=== PATIENT | female | born 1990 | race Caucasian/White ===

== ENCOUNTER 2018-02-25 02:02 | Emergency (ER) | payer SELFPAY ==
[~2018-02-25] VITALS: Ht 175.3 cm; Wt 68.0 kg
[~2018-02-25 02:02] MED LIST: ACHD5005 PO; CEFP250T2 PO; DOCU100C37 PO; FERR325T18 PO; FRS325T PO; IBP800T PO; IBUP-1773 PO; PRCD5U PO; PREN-115 PO; PREN1TAB44 PO; [UNRECOGNIZED DRUG - CODE] PO
--- OUTSIDE RECORDS SUMMARY | 2018-02-25 02:12 | XMS REPORT | Continuity of Care Document ---
Demographics Preferred Language Unknown Marital Status Unknown Mormon Affiliation Unknown Race Unknown Ethnic Group Unknown Author Author [facility] Address Unknown Phone Unavailable Allergies Active Description Code Type Severity Reaction Onset Reported/Identified Relationship to Patient Clinical Status Yes Penicillins Drug Allergy 09/02/2008 Yes Penicillins [id number] Drug Allergy Moderate hives 04/21/2015 Medications There is no data. Problems Date Dx Coded Attending Type Code Diagnosis Diagnosed By 09/02/2008 V25.9 Gynecologic Services Contraceptive Management 09/02/2008 V72.31 Pelvic Exam ( Internal) 09/09/2008 626.9 UNSPECIFIED DISORDERS OF MENSTRUATION AND OTHER ABNORMAL BLEEDING FROM FEMALE GENITAL TRACT 05/18/2012 V72.42 TEST POSITIVE RESULT 08/06/2012 Ot 648.73 08/06/2012 Ot 648.93 08/06/2012 Ot 724.5 08/06/2012 Ot 786.2 08/06/2012 Ot 789.00 08/31/2012 Ot 655.73 09/07/2012 Ot 644.03 10/08/2012 Ot 644.03 12/08/2012 ALVA GUERRIER DO Ot 285.1 12/08/2012 ALVA GUERRIER DO C Ot 644.21 12/08/2012 AURA GUERRIER DOA C Ot 648.22 12/08/2012 AURA GUERRIER DOA C Ot 649.01 12/08/2012 AURA GUERRIER DOA C Ot 653.41 12/08/2012 AURA GUERRIER DOA C Ot 659.71 12/08/2012 AURA GUERRIER DOA C Ot 660.11 12/08/2012 AURA GUERRIER DOA C Ot V27.0 11/20/2014 SHELBY ZAMORA DO Ot 599.0 11/20/2014 SHELBY ZAMORA DO Ot 646.63 04/23/2015 AURA GUERRIER DOA C Ot D62 04/23/2015 AURA GUERRIRE DOA C Ot F17.210 04/23/2015 AURA GUERRIER DOA C Ot O34.21 04/23/2015 AURA GUERRIER DOA C Ot O99.03 04/23/2015 ALVA GUERRIER DO Niki Ot O99.12 04/23/2015 ALVA GUERRIER DO Niki Ot O99.334 04/23/2015 ALVA GUERRIER DO Niki Ot Z23 04/23/2015 ALVA GUERRIER DO Niki Ot Z37.0 04/23/2015 ALVA GUERRIER DO Niki Ot Z3A.39 Procedures Code [place] [address] URINE TEST (IN- HOUSE) 05/18/2012 Results There is no data. Encounters ACCT No. Visit Date/Time Discharge Status Pt. Type Provider Facility Loc./Unit Complaint [id number] 05/18/2012 10:52:00 05/18/2012 23:59:59 CLS Outpatient [id number] 04/21/2015 07:30:00 04/23/2015 11:45:00 DIS Inpatient GUERRIER ALVA C Via [facility] LDRP [id number] 04/20/2015 05:52:00 04/20/2015 23:59:59 CLS Outpatient ALVA GUERRIER DO Via [facility] PREOP [id number] 11/20/2014 17:19:00 11/20/2014 20:43:00 DIS Emergency SHELBY ZAMORA DO Via [facility] ER [id number] 12/05/2012 07:14:00 12/08/2012 14:50:00 DIS Inpatient GUERRIERRony CEJA ALVA C [facility] [id number] 10/08/2012 22:59:00 Document Registration [id number] 09/07/2012 01:23:00 Document Registration [id number] 08/31/2012 00:43:00 Document Registration [id number] 08/06/2012 21:26:00 Document Registration
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
[2018-02-25] MEDS ORDERED: MAG30ORA2 PO (02:28)
[2018-02-25 02:33] LABS: BASOPHILS # (AUTO) 0.1 10^3/uL (0.0-0.1); BASOPHILS % (AUTO) 1 % (0-10); EOSINOPHILS # (AUTO) 0.1 10^3/uL (0.0-0.3); EOSINOPHILS % (AUTO) 1 % (0-10); HEMATOCRIT 29 % (35-52); HEMOGLOBIN 8.9 G/DL (11.5-16.0); LYMPHOCYTES # (AUTO) 2.9 X 10^3 (1.0-4.0); LYMPHOCYTES % (AUTO) 29 % (12-44); MEAN CORPUSCULAR HEMOGLOBIN 21 PG (25-34); MEAN CORPUSCULAR HGB CONC 31 G/DL (32-36); MEAN CORPUSCULAR VOLUME 67 FL (80-99); MONOCYTES # (AUTO) 0.6 X 10^3 (0.0-1.0); MONOCYTES % (AUTO) 6 % (0-12); NEUTROPHILS # (AUTO) 6.1 X 10^3 (1.8-7.8); NEUTROPHILS % (AUTO) 63 % (42-75); PLATELET COUNT 338 10^3/uL (130-400); RED BLOOD COUNT 4.31 10^6/uL (4.35-5.85); RED CELL DISTRIBUTION WIDTH 19.9 % (10.0-14.5); WHITE BLOOD COUNT 9.7 10^3/uL (4.3-11.0)
[2018-02-25 02:43] LABS: PROTHROMBIN TIME PATIENT 13.3 SEC (12.2-14.7)
[2018-02-25 02:44] LABS: BILIRUBIN,URINE NEGATIVE (NEGATIVE); CLARITY,URINE CLEAR; COLOR,URINE YELLOW; GLUCOSE, URINE (UA) NEGATIVE (NEGATIVE); KETONES,URINE NEGATIVE (NEGATIVE); LEUKOCYTE ESTERASE ,URINE 1+ (NEGATIVE); NITRITE,URINE NEGATIVE (NEGATIVE); PH,URINE 6.5 (5-9); PROTEIN,URINE 2+ (NEGATIVE); UROBILINOGEN,URINE NORMAL (NORMAL)
[2018-02-25 02:45] LABS: BACTERIA,URINE FEW /HPF; WBC,URINE RARE /HPF
[2018-02-25 02:47] LABS: AMPHETAMINE SCREEN, URINE NEGATIVE (NEGATIVE); BARBITURATE SCREEN URINE NEGATIVE (NEGATIVE); BENZODIAZEPINES SCREEN URINE NEGATIVE (NEGATIVE); CANNABINOID SCREEN, URINE NEGATIVE (NEGATIVE); COCAINE SCREEN URINE NEGATIVE (NEGATIVE); METHADONE STAT NEGATIVE (NEGATIVE); METHAMPHETAMINE SCREEN URINE S NEGATIVE (NEGATIVE); OPIATE SCREEN URINE NEGATIVE (NEGATIVE); OXYCODONE STAT NEGATIVE (NEGATIVE); PROPOXYPHENE STAT NEGATIVE (NEGATIVE); TRICYCLIC ANTIDEPRESSANTS SCRE NEGATIVE (NEGATIVE)
[2018-02-25 02:50] LABS: ALANINE AMINOTRANSFERASE 13 U/L (0-55); ALBUMIN 4.1 GM/DL (3.2-4.5); ALKALINE PHOSPHATASE 48 U/L (40-136); BILIRUBIN,TOTAL 0.2 MG/DL (0.1-1.0); BUN/CREATININE RATIO 20; CARBON DIOXIDE 19 MMOL/L (21-32); CHLORIDE 108 MMOL/L (98-107); CREATININE SERUM 0.76 MG/DL (0.60-1.30); GFR ESTIMATED > 60; GLUCOSE 91 MG/DL (70-105); MAGNESIUM 2.2 MG/DL (1.8-2.4); POTASSIUM 3.7 MMOL/L (3.6-5.0); SODIUM 137 MMOL/L (135-145); TOTAL PROTEIN 6.9 GM/DL (6.4-8.2)
[2018-02-25 03:10] LABS: TSH (THYROID ANALYZER) 3.56 UIU/ML (0.35-4.94)
[2018-02-25 03:15] VITALS: BP 105/61
== END 2018-02-25 03:15 | disposition home or self-care (01) ==
LOC: EDUNIT# 02:05 → ER 02:07
DX: J45.909 Unspecified asthma, uncomplicated (principal); F17.210 Nicotine dependence, cigarettes, uncomplicated; F41.9 Anxiety disorder, unspecified; Z98.51 Tubal ligation status; Z90.89 Acquired absence of other organs; Z87.440 Personal history of urinary (tract) infections; Z87.59 Personal history of other complications of pregnancy, childbirth and the puerperium; Z88.0 Allergy status to penicillin; Z88.1 Allergy status to other antibiotic agents
CPT/HCPCS: 36415; 80053; 80306; 80320; 81000; 83735; 83880; 84443; 84484; 84703; 85025; 85610; 85730; 93005; 93041

== ENCOUNTER 2018-08-22 20:31 | Emergency (ER) | payer SELFPAY ==
[~2018-08-22] VITALS: Ht 170.2 cm; Wt 66.7 kg
[~2018-08-22 20:31] MED LIST changes: +MAG30ORA2 PO
[2018-08-22] MEDS ORDERED: NS IV 1000 ML 1,000 ML IV SCH (20:50)
[2018-08-22] MEDS ORDERED: diphenhydrAMINE 50 MG/ML INJ (BENADRYL) IV STA (20:50)
[2018-08-22] MEDS ORDERED: KETOROLAC 30 MG/ML VIAL IVP STA (20:50)
[2018-08-22] MEDS ORDERED: PROCHLORPERAZINE 10 MG/2ML INJ (COMPAZINE) IV ONE (21:00)
--- OUTSIDE RECORDS SUMMARY | 2018-08-22 21:11 | XMS REPORT | Continuity of Care Document ---
Demographics Preferred Language Unknown Marital Status Unknown Pentecostalism Affiliation Unknown Race Unknown Ethnic Group Unknown Author Author [facility] Address Unknown Phone Unavailable Allergies Active Description Code Type Severity Reaction Onset Reported/Identified Relationship to Patient Clinical Status Yes Penicillins Drug Allergy 09/02/2008 Yes Penicillins [id number] Drug Allergy Moderate hives 04/21/2015 Medications There [...] 12/08/2012 ALVA GUERRIER DO Ot 285.1 12/08/2012 AURA GUERRIER DOA C Ot 644.21 12/08/2012 AURA GUERRIER DOA [...] GUERRIER DOA C Ot D62 04/23/2015 AURA GUERRIER DOA C Ot F17.210 04/23/2015 AURA GUERRIER DOA C Ot O34.21 04/23/2015 AURA GUERRIER DOA C Ot O99.03 04/23/2015 ALVA GUERRIER DO Ot O99.12 04/23/2015 GUERRIER DO, ALVA Prince Ot O99.334 04/23/2015 ALVA GUERRIER DO Ot Z23 04/23/2015 GUERRIER DO, ALVA Prince Ot Z37.0 04/23/2015 ALVA GUERRIER DO Ot Z3A.39 02/25/2018 Ot F17.210 NICOTINE DEPENDENCE, CIGARETTES, UNCOMPL 02/25/2018 Ot F41.0 PANIC DISORDER [EPISODIC PAROXYSMAL ANXI 02/25/2018 Ot F41.9 ANXIETY DISORDER, UNSPECIFIED 02/25/2018 Ot J45.909 UNSPECIFIED ASTHMA, UNCOMPLICATED 02/25/2018 Ot Z87.440 PERSONAL HISTORY OF URINARY (TRACT) INFE 02/25/2018 Ot Z87.59 PERSONAL HISTORY OF COMP OF PREG, CHLDBR 02/25/2018 Ot Z88.0 ALLERGY STATUS TO PENICILLIN 02/25/2018 Ot Z88.1 ALLERGY STATUS TO OTHER ANTIBIOTIC AGENT 02/25/2018 Ot Z90.89 ACQUIRED ABSENCE OF OTHER ORGANS 02/25/2018 Ot Z98.51 TUBAL LIGATION STATUS Procedures Code Description [place] [address] URINE TEST (IN- HOUSE) 05/18/2012 Results Test Result Range Complete blood count (CBC) with automated white blood cell (WBC) differential - 02/25/18 02:20 Blood leukocytes automated count (number/volume) 9.7 10*3/uL 4.3-11.0 Blood erythrocytes automated count (number/volume) 4.31 10*6/uL 4.35-5.85 Venous blood hemoglobin measurement (mass/volume) 8.9 g/dL 11.5-16.0 Blood hematocrit (volume fraction) 29 % 35-52 Automated erythrocyte mean corpuscular volume 67 [foz_us] 80-99 Automated erythrocyte mean corpuscular hemoglobin (mass per erythrocyte) 21 pg 25-34 Automated erythrocyte mean corpuscular hemoglobin concentration measurement ( mass/volume) 31 g/dL 32-36 Automated erythrocyte distribution width ratio 19.9 % 10.0-14.5 Automated blood platelet count (count/volume) 338 10*3/uL 130-400 Automated blood platelet mean volume measurement 11.0 [foz_us] 7.4-10.4 Automated blood neutrophils/100 leukocytes 63 % 42-75 Automated blood lymphocytes/100 leukocytes 29 % 12-44 Blood monocytes/100 leukocytes 6 % 0-12 Automated blood eosinophils/100 leukocytes 1 % 0-10 Automated blood basophils/100 leukocytes 1 % 0-10 Blood neutrophils automated count (number/volume) 6.1 10*3 1.8-7.8 Blood lymphocytes automated count (number/volume) 2.9 10*3 1.0-4.0 Blood monocytes automated count (number/volume) 0.6 10*3 0.0-1.0 Automated eosinophil count 0.1 10*3/uL 0.0-0.3 Automated blood basophil count (count/volume) 0.1 10*3/uL 0.0-0.1 PT panel in platelet poor plasma by coagulation assay - 02/25/18 02:20 Prothrombin time (PT) in platelet poor plasma by coagulation assay 13.3 s 12.2-14.7 INR in platelet poor plasma or blood by coagulation assay 1.0 0.8-1.4 Activated partial thromboplastin time (aPTT) in platelet poor plasma bycoagulation assay - 02/25/18 02:20 Activated partial thromboplastin time (aPTT) in platelet poor plasma bycoagulation assay 31 s 24-35 Comprehensive metabolic panel - 02/25/18 02:20 Serum or plasma sodium measurement (moles/volume) 137 mmol/L 135-145 Serum or plasma potassium measurement (moles/volume) 3.7 mmol/L 3.6-5.0 Serum or plasma chloride measurement (moles/volume) 108 mmol/L 98-107 Carbon dioxide 19 mmol/L 21-32 Serum or plasma anion gap determination (moles/volume) 10 mmol/L 5-14 Serum or plasma urea nitrogen measurement (mass/volume) 15 mg/dL 7-18 Serum or plasma creatinine measurement (mass/volume) 0.76 mg/dL 0.60-1.30 Serum or plasma urea nitrogen/creatinine mass ratio 20 NRG Serum or plasma creatinine measurement with calculation of estimated glomerular filtration rate > NRG Serum or plasma glucose measurement (mass/volume) 91 mg/dL 70-105 Serum or plasma calcium measurement (mass/volume) 9.0 mg/dL 8.5-10.1 Serum or plasma total bilirubin measurement (mass/volume) 0.2 mg/dL 0.1-1.0 Serum or plasma alkaline phosphatase measurement (enzymatic activity/volume) 48 U/L 40-136 Serum or plasma aspartate aminotransferase measurement (enzymatic activity/ volume) 14 U/L 5-34 Serum or plasma alanine aminotransferase measurement (enzymatic activity/volume ) 13 U/L 0-55 Serum or plasma protein measurement (mass/volume) 6.9 g/dL 6.4-8.2 Serum or plasma albumin measurement (mass/volume) 4.1 g/dL 3.2-4.5 Magnesium - 02/25/18 02:20 Magnesium 2.2 mg/dL 1.8-2.4 Serum or plasma lithium measurement (moles/volume) - 02/25/18 02:20 BNP level < pg/mL <100.0 Serum or plasma troponin i.cardiac measurement (mass/volume) - 02/25/18 02:20 Serum or plasma troponin i.cardiac measurement (mass/volume) < ng/ mL <0.30 Serum or plasma thyrotropin measurement by detection limit <=0.05 miu/l (units/ volume) - 02/25/18 02:20 Serum or plasma thyrotropin measurement by detection limit <=0.05 miu/l (units/ volume) 3.56 u[iU]/mL 0.35-4.94 Serum or plasma ethanol measurement (mass/volume) - 02/25/18 02:20 Serum or plasma ethanol measurement (mass/volume) < mg/dL <10 Complete urinalysis with reflex to culture - 02/25/18 02:23 Urine color determination YELLOW NRG Urine clarity determination CLEAR NRG Urine pH measurement by test strip 6.5 5-9 Specific gravity of urine by test strip 1.015 1.016- 1.022 Urine protein assay by test strip, semi-quantitative 2+ NEGATIVE Urine glucose detection by automated test strip NEGATIVE NEGATIVE Erythrocytes detection in urine sediment by light microscopy NEGATIVE NEGATIVE Urine ketones detection by automated test strip NEGATIVE NEGATIVE Urine nitrite detection by test strip NEGATIVE NEGATIVE Urine total bilirubin detection by test strip NEGATIVE NEGATIVE Urine urobilinogen measurement by automated test strip (mass/volume) NORMAL NORMAL Urine leukocyte esterase detection by dipstick 1+ NEGATIVE Automated urine sediment erythrocyte count by microscopy (number/high power field) NONE NRG Automated urine sediment leukocyte count by microscopy (number/high power field ) RARE NRG Bacteria detection in urine sediment by light microscopy FEW NRG Squamous epithelial cells detection in urine sediment by light microscopy 5-10 NRG Crystals detection in urine sediment by light microscopy NONE NRG Casts detection in urine sediment by light microscopy NONE NRG Mucus detection in urine sediment by light microscopy NEGATIVE NRG Complete urinalysis with reflex to culture NO NRG Urine drug screening test - 02/25/18 02:23 Urine phencyclidine detection by screening method NEGATIVE NEGATIVE Urine benzodiazepines detection by screening method NEGATIVE NEGATIVE Urine cocaine detection NEGATIVE NEGATIVE Urine amphetamines detection by screening method NEGATIVE NEGATIVE Urine methamphetamine detection by screening method NEGATIVE NEGATIVE Urine cannabinoids detection by screening method NEGATIVE NEGATIVE Urine opiates detection by screening method NEGATIVE NEGATIVE Urine barbiturates detection NEGATIVE NEGATIVE Screening urine tricyclic antidepressants detection NEGATIVE NEGATIVE Urine methadone detection by screening method NEGATIVE NEGATIVE Urine oxycodone detection NEGATIVE NEGATIVE Urine propoxyphene detection NEGATIVE NEGATIVE Encounters ACCT No. Visit Date/Time Discharge Status Pt. Type Provider Facility Loc./Unit Complaint [id number] 05/18/2012 10:52:00 05/18/2012 23:59:59 CLS Outpatient [id number] 04/21/2015 07:30:00 04/23/2015 11:45:00 DIS Inpatient ALVA GUERRIER DO [facility] LDRP [id number] 04/20/2015 05:52:00 04/20/2015 23:59:59 CLS Outpatient ALVA GUERRIER DO [facility] PREOP [id number] 11/20/2014 17:19:00 11/20/2014 20:43:00 DIS Emergency SHELBY ZAMORA DO [facility] ER [id number] 12/05/2012 07:14:00 12/08/2012 14:50:00 DIS Inpatient ALVA GUERRIER DO [facility] [id number] 02/25/2018 02:37:00 Document Registration [id number] 10/08/2012 22:59:00 Document Registration [id number] 09/07/2012 01:23:00 Document Registration [id number] 08/31/2012 00:43:00 Document Registration [id number] 08/06/2012 21:26:00 Document Registration
--- NOTE | 2018-08-22 21:12 | ED Headache ---
General Chief Complaint: Head/Cervical Problems Stated Complaint: HEADACHE Nursing Triage Note: PT AMB TO ROOM #8 W/O DIFFICULTY. A&OX4. C/O LT SIDED HEADACHE FOR APPROX X3 WKS. REPORTS PAIN IS BECOMING SO SEVERE SHE IS NOW EXPERIENCING NAUSEA AND VOMITING. REPORTS SHE HAS X3 EPISODES OF EMESIS THROUGHOUT THIS DAY. REPORTS PHOTOPHONIA. 3MM PERRLA. S/O @ SIDE. Nursing Sepsis Screen: No Definite Risk History of Present Illness Date Seen by Provider: Aug 22, 2018 Time Seen by Provider: 20:50 Initial Comments 28-year-old female presents for headache. She states that it has been intermittent over the last 3 weeks but has gotten progressively worse in the last 24 hours. Vomited approximately 3 times today, once since admission to ED. She has tried Tylenol and ibuprofen with no improvement in her symptoms. She denies history of headaches or migraines. She does report mild photophobia, no seizure activity or changes in vision. Timing/Duration: increasing, waxing and waning Severity/Quality: moderate Location: temporal (left) Prior Headaches/Recent Trauma: no recent headache/trauma Modifying Factors: improves with rest Associated Symptoms: No confusion, No fatigue, No facial pain, No fever/chills ; nausea/vomiting; No nasal congestion, No nasal drainage, No sinus infection, No stiff neck, No vision changes, No weakness Allergies and Home Medications Allergies Coded Allergies: Penicillins (Verified Allergy, Intermediate, hives, 04/21/15) Cephalosporins PER FERNANDO PATIENT HAS RECEIVED ANCEF WITHOUT ISSUE Home Medications Mag Hydrox/Al Hydrox/Simeth 30 Ml Oral.susp, 30 ML PO QID PRN for INDIGESTION, ( Reported) Patient Home Medication List Home Medication List Reviewed: Yes Review of Systems Review of Systems Constitutional: no symptoms reported, see HPI : No (tubal ligation) Psychiatric/Neurological: See HPI, Headache Past Wjjvzfg-Wsrjyf-Ptjwxo Hx Past Med/Social Hx: Reviewed Nursing Past Med/Soc Hx Patient Social History Alcohol Use: Denies Use Recreational Drug Use: No Smoking Status: Current Everyday Smoker Type Used: Cigarettes 2nd Hand Smoke Exposure: Yes Recent Foreign Travel: No Contact w/Someone Who Travel: No Recent Infectious Disease Expo: No Recent Hopitalizations: No Immunizations Up To Date Tetanus Booster (TDap): Less than 5yrs Seasonal Allergies Seasonal Allergies: No Past Medical History Surgeries: Yes ( X 3) Appendectomy, Section, Gallbladder, Tubal Ligation Respiratory: Yes Asthma Cardiac: No Neurological: No Reproductive Disorders: No Female Reproductive Disorders: Denies MRI CT TECH History: Tubal Ligation HIV/AIDS: No Genitourinary: No UTI-Chronic Gastrointestinal: No Musculoskeletal: No Endocrine: No HEENT: No Cancer: No Psychosocial: Yes Anxiety Integumentary: No Blood Disorders: No Family Medical History Patient reports no known family medical history. Physical Exam Vital Signs Vital Signs - First Documented 08/22/18 20:38 Temp 96.9 Pulse 87 Resp 18 B/P (MAP) 121/70 (87) Pulse Ox 100 O2 Delivery Room Air Capillary Refill : Less Than 3 Seconds Height, Weight, BMI Height: 5'7.00" Weight: 147lbs. oz. 66.685453aj; BMI Method:Stated General Appearance: WD/WN, no apparent distress HEENT: PERRL/EOMI, normal ENT inspection, TMs normal, pharynx normal Neck: non-tender, full range of motion, supple, normal inspection Cardiovascular: normal peripheral pulses, regular rate, rhythm, no murmur Respiratory: chest non-tender, lungs clear, normal breath sounds Gastrointestinal: normal bowel sounds, non tender, soft Extremities: normal range of motion, non-tender, normal inspection, normal capillary refill Psychiatric: alert, oriented x 3 Crainal Nerves: normal hearing, normal speech Motor/Sensory: no motor deficit, no sensory deficit Skin: normal color, warm/dry Progress/Results/Core Measures Results/Orders My Orders Orders - FLORENTIN CHANEY Diphenhydramine Injection (Benadryl Inje (08/22/18 20:50) Ketorolac Injection (Toradol Injection) (08/22/18 20:50) Prochlorperazine Injection (Compazine In (08/22/18 21:00) Saline Lock/Iv-Start (08/22/18 20:50) Ns Iv 1000 Ml (Sodium Chloride 0.9%) (08/22/18 20:50) Rx-Ondansetron Po (Rx-Zofran Po) (08/22/18 21:56) Medications Given in ED Current Medications Medications Dose Ordered Sig/Ezio Route Start Time Stop Time Status Last Admin Dose Admin Prochlorperazine Edisylate 10 mg ONCE ONCE IV 08/22/18 21:00 08/22/18 21:01 DC 08/22/18 21:24 10 MG Vital Signs/I&O 08/22/18 20:38 Temp 96.9 Pulse 87 Resp 18 B/P (MAP) 121/70 (87) Pulse Ox 100 O2 Delivery Room Air Blood Pressure Mean: 87 Progress Progress Note : Time: 20:55 Progress Note Patient seen and evaluated, will start a normal saline 1 L IV, Compazine 10 mg IV, Benadryl 50 mg IV and Toradol 30 mg IV, then reevaluate. 2139 Patient reports improvement in her headache, no further n/v. Approximately 1/2 of IV fluids infused, will d/c when completed. 2199 Discharge planning and return precautions reviewed with her, all questions answered. Departure Impression Primary Impression: Headache Qualified Codes: G44.211 - Episodic tension-type headache, intractable Disposition: HOME, SELF-CARE Condition: Improved Departure-Patient Inst. Decision time for Depature: 21:45 Referrals: CANDELARIO LVOELACE MD (PCP/Family) Primary Care Physician Patient Instructions: Headache, Adult (DC) Add. Discharge Instructions: Increase water intake, extending ounces every 2 hours while awake. Obtain moxm-rfq-gymvmuf Excedrin Migraine intake at onset of headache. If headaches continue, follow-up with Dr. Lovelace. You may take Zofran every 6 hours as needed for nausea and vomiting. Return to emergency Department if headache worsens, is associated with seizure activity or vision changes, fever greater than 101 not relieved by Tylenol or ibuprofen, or new concerns. All discharge instructions reviewed with patient and/or family. Voiced understanding. FLORENTIN CHANEY Aug 22, 2018 21:12
[2018-08-22] MEDS ORDERED: RX-ONDANSETRON 4 MG ODT (ZOFRAN) PPK #4 PO STA (21:56)
[2018-08-22 22:18] VITALS: BP 120/70
== END 2018-08-22 22:18 | disposition home or self-care (01) ==
LOC: EDUNIT# 20:31 → ER 20:32
DX: R51 Headache (principal); J45.909 Unspecified asthma, uncomplicated; F41.9 Anxiety disorder, unspecified; F17.210 Nicotine dependence, cigarettes, uncomplicated; Z90.49 Acquired absence of other specified parts of digestive tract; Z98.890 Other specified postprocedural states; Z87.440 Personal history of urinary (tract) infections; Z98.51 Tubal ligation status; Z88.0 Allergy status to penicillin; Z88.1 Allergy status to other antibiotic agents

== ENCOUNTER 2018-11-12 09:45 | Emergency (ER) | payer SELFPAY ==
[~2018-11-12] VITALS: Ht 175.3 cm; Wt 68.0 kg
--- NOTE | 2018-11-12 10:22 | ED Lower Extremity ---
General Chief Complaint: Lower Extremity Stated Complaint: FELL AND HURT RT ANKLE Nursing Triage Note: PT AMB TO RM 8 WITH COMPLAINT OF RIHGT ANKLE PAIN. PT STATES SHE TRIPPED AND FELL OVER SOMEONES PURSE LAST NIGHT AT WORK. STATES SHE HEARD A "POP" AND HER TOES WENT NUMB FOR A MOMENT. PT STATES NUMBNESS RESOLVED, BUT IS HAVING PAIN. Nursing Sepsis Screen: No Definite Risk Source: patient, family History of Present Illness Date Seen by Provider: Nov 12, 2018 Time Seen by Provider: 10:20 Initial Comments This 28-year-old white female presents after sustaining an inversion injury to her previously on injured right ankle last night. She complained of pain and swelling over the lateral malleolar area. She denies pain in the calcaneus, fifth metatarsal, right knee or hip. Patient has been able weight-bear but with marked discomfort. Allergies and Home Medications Allergies Coded Allergies: Penicillins (Verified Allergy, Intermediate, hives, 04/21/15) Cephalosporins PER FERNANDO PATIENT HAS RECEIVED ANCEF WITHOUT ISSUE Home Medications Mag Hydrox/Al Hydrox/Simeth 30 Ml Oral.susp, 30 ML PO QID PRN for INDIGESTION, ( Reported) Patient Home Medication List Home Medication List Reviewed: Yes Review of Systems Constitutional: No chills EENTM: No ear pain Respiratory: No cough Cardiovascular: No chest pain Gastrointestinal: No abdominal pain Genitourinary: No dysuria, No frequency Musculoskeletal: No back pain; joint pain Skin: No change in color (right ankle), No rash Psychiatric/Neurological: No Symptoms Reported Past Euyrnzb-Lqorav-Etenvz Hx Past Med/Social Hx: Reviewed Nursing Past Med/Soc Hx Patient Social History Alcohol Use: Denies Use Recreational Drug Use: No Smoking Status: Current Everyday Smoker Type Used: Cigarettes 2nd Hand Smoke Exposure: Yes Recent Foreign Travel: No Contact w/Someone Who Travel: No Recent Infectious Disease Expo: No Recent Hopitalizations: No Immunizations Up To Date Tetanus Booster (TDap): Less than 5yrs PED Vaccines UTD: Yes Seasonal Allergies Seasonal Allergies: No Past Medical History Surgeries: Yes ( X 3) Appendectomy, Section, Gallbladder, Tubal Ligation Respiratory: Yes Asthma Cardiac: No Neurological: No Reproductive Disorders: No 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 Physical Exam Vital Signs Vital Signs - First Documented 11/12/18 09:57 Pulse 102 Resp 20 B/P (MAP) 121/58 (79) Pulse Ox 100 O2 Delivery Room Air Capillary Refill : Less Than 3 Seconds Height, Weight, BMI Height: 5'9.00" Weight: 150lbs. oz. 68.348233nx; BMI Method:Stated General Appearance: WD/WN, mild distress HEENT: normal ENT inspection Neck: normal inspection Cardiovascular: regular rate, rhythm Respiratory: lungs clear Gastrointestinal: normal bowel sounds Ankles: right ankle pain, right ankle swelling Neurologic/Tendon: normal sensation, normal motor functions, normal tendon functions Neurologic/Psychiatric: no motor/sensory deficits, alert, normal mood/affect Skin: normal color, warm/dry Progress/Results/Core Measures Results/Orders My Orders Orders - LADY PADRON MD Ankle, Right, 3 Views (11/12/18 11:36) Hydrocodone/Apap 5/325 Tablet (Lortab 5 (11/12/18 11:45) Medications Given in ED Current Medications Medications Dose Ordered Sig/Ezio Route Start Time Stop Time Status Last Admin Dose Admin Acetaminophen/ Hydrocodone Bitart 2 tab ONCE ONCE PO 11/12/18 11:45 11/12/18 11:46 DC 11/12/18 11:40 2 TAB Vital Signs/I&O 11/12/18 09:57 Pulse 102 Resp 20 B/P (MAP) 121/58 (79) Pulse Ox 100 O2 Delivery Room Air Blood Pressure Mean: 79 Progress Progress Note : Time: 12:24 Progress Note X-ray of the right ankle film demonstrated evidence of fracture dislocation. Patient was given 2 Vicodin 5 mg orally. Patient was given an air cast. She was offered crutches. She was asked about the doctor this week. Departure Impression Primary Impression: Ankle sprain Qualified Codes: S93.431A - Sprain of tibiofibular ligament of right ankle, initial encounter Disposition: HOME, SELF-CARE Condition: Improved Departure-Patient Inst. Decision time for Depature: 12:25 Referrals: CANDELARIO LOVELACE MD (PCP/Family) Primary Care Physician Patient Instructions: Ankle Sprain, Dependent Edema (DC) Add. Discharge Instructions: Vicodin for pain. Iain wrap and crutches for limited weightbearing. Follow-up with your All discharge instructions reviewed with patient and/or family. Voiced understanding. LADY PADRON MD Nov 12, 2018 10:22
[2018-11-12] MEDS ORDERED: HYDROcodone/APAP 5 MG/325 MG (LORTAB) TAB PO ONE (11:45)
--- NOTE | 2018-11-12 12:19 | Diagnostic Imaging Report ---
INDICATION: Right ankle pain, tripped and fell last night at work. [place] pop, numbness. TECHNIQUE: Three views of the right ankle CORRELATION STUDY: None FINDINGS: The bony alignment is anatomic. The talar dome is intact. The ankle mortise is maintained. There is no acute fracture or dislocation. Soft tissue swelling is present. IMPRESSION: Negative for acute bony abnormality of the ankle. Soft tissue swelling. Dictated by: Dictated on workstation # [id number]
[2018-11-12 12:32] VITALS: BP 116/62
== END 2018-11-12 12:31 | disposition home or self-care (01) ==
LOC: EDUNIT# 09:45 → ER 09:46
DX: S93.431A Sprain of tibiofibular ligament of right ankle, initial encounter (principal); J45.909 Unspecified asthma, uncomplicated; F41.9 Anxiety disorder, unspecified; F17.210 Nicotine dependence, cigarettes, uncomplicated; Z90.49 Acquired absence of other specified parts of digestive tract; Z87.440 Personal history of urinary (tract) infections; Z98.890 Other specified postprocedural states; Z98.51 Tubal ligation status; Z88.0 Allergy status to penicillin; Z88.1 Allergy status to other antibiotic agents; W01.0XXA Fall on same level from slipping, tripping and stumbling without subsequent striking against object, initial encounter; X50.1XXA Overexertion from prolonged static or awkward postures, initial encounter; Y92.59 Other trade areas as the place of occurrence of the external cause; Y99.0 Civilian activity done for income or pay
CPT/HCPCS: 73610

== ENCOUNTER 2022-03-04 17:10 | Day surgery (SDC) | payer SELFPAY ==
[~2022-03-04] VITALS: Ht 175.3 cm; Wt 88.7 kg
[2022-03-04] VITALS (7 sets, daily range): BP systolic 133–146; BP diastolic 64–81
[2022-03-04 17:25] LABS: BILIRUBIN,URINE NEGATIVE (NEGATIVE); CLARITY,URINE CLEAR; COLOR,URINE YELLOW; GLUCOSE, URINE (UA) NEGATIVE (NEGATIVE); KETONES,URINE NEGATIVE (NEGATIVE); LEUKOCYTE ESTERASE ,URINE NEGATIVE (NEGATIVE); NITRITE,URINE NEGATIVE (NEGATIVE); PROTEIN,URINE NEGATIVE (NEGATIVE)
[2022-03-04] MEDS ORDERED: fentaNYL INJ 100 MCG/2 ML AMP IVP STA ×2 (17:27→20:08)
[2022-03-04] MEDS ORDERED: NS 100 ML (IVPB) BAG IV ONE (17:30)
[2022-03-04] MEDS ORDERED: HOLD METFORMIN - RECEIVED CONTRAST 20 ML VIAL IV SCH (17:30)
[2022-03-04] MEDS ORDERED: IOHEXOL 350 MG/ML 100 ML (OMNIPAQUE 350) VIAL IV ONE (17:30)
--- NOTE | 2022-03-04 17:33 | ED Abdominal Pain ---
General Chief Complaint: Abdominal/GI Problems Stated Complaint: RLQ PAIN Source of Information: Patient Exam Limitations: No Limitations (KEIKO MCGHEE) History of Present Illness Date Seen by Provider: Mar 04, 2022 Time Seen by Provider: 17:29 Initial Comments Patient is a 31-year-old female in moderate distress who presents to ED with right lower quad abdominal pain. Pain started 3 days ago. Pain is described as sharp. Started 3 days ago as intermittent. Increasing pain yesterday and worse today rates 10 out of 10. Pain does not radiate. Patient is crying on arrival. She has no urinary symptoms, vaginal discharge or vaginal bleeding. She reports nausea today with dry heaving. Denies of any diarrhea. History of tubal ligation. Not concern for . She does have a history of cholecystectomy and appendectomy. She went to [facility] was sent over the ED for further evaluation. Had a negative urinalysis. No history of kidney stones. Has been taken Motrin and Tylenol without much improvement. (KEIKO MCGHEE) Allergies and Home Medications Allergies Coded Allergies: Penicillins (Verified Allergy, Intermediate, hives, 04/21/15) Cephalosporins PER JJAMES PATIENT HAS RECEIVED ANCEF WITHOUT ISSUE Patient Home Medication List Home Medication List Reviewed: Yes (KEIKO MCGHEE) Docusate Sodium (Colace) 100 Mg Capsule, 100 MG PO BID Prescribed by: INGA CARMEN on 03/04/222117 Ibuprofen (Ibuprofen) 800 Mg Tablet, 800 MG PO Q4H PRN for PAIN Prescribed by: INGA CARMEN on 03/04/222117 Mag Hydrox/Al Hydrox/Simeth (Mylanta Suspension) 30 Ml Oral.susp, 30 ML PO QID PRN for INDIGESTION, (Reported) Entered as Reported by: JOANNE TAMAYO on 02/25/18 0228 Review of Systems Review of Systems Constitutional: No chills, No diaphoresis, No malaise, No weakness EENTM: No Double Vision, No Eye Pain, No Mouth Pain, No Mouth Swelling Respiratory: Denies Cough, Denies Shortness of Air, Denies Wheezing Cardiovascular: Denies Chest Pain Gastrointestinal: Abdominal Pain; Denies Diarrhea, Denies Nausea, Denies Vomiting Genitourinary: Denies Burning, Denies Discharge, Denies Drainage, Denies Frequency Musculoskeletal: No back pain, No joint pain Skin: No change in color, No change in hair/nails Psychiatric/Neurological: Denies Anxiety, Denies Depressed (KEIKO MCGHEE) All Other Systems Reviewed Negative Unless Noted: Yes (KEIKO MCGHEE) Past Lbetsuo-Ogkeyv-Gluuzr Hx Patient Social History Tobacco Use?: Yes Tobacco type used: Cigarettes Smoking Status: Current Everyday Smoker Use of E-Cig and/or Vaping dev: No Substance use?: No Alcohol Use?: No Pt feels they are or have been: No (KEIKO MCGHEE) Immunizations Up To Date Tetanus Booster (TDap): Less than 5yrs PED Vaccines UTD: Yes (KEIKO MCGHEE) Seasonal Allergies Seasonal Allergies: No (KEIKO MCGHEE) Past Medical History Surgeries: Yes ( X 3) Appendectomy, Section, Gallbladder, Tubal Ligation Respiratory: Yes Asthma Cardiac: No Neurological: No Reproductive Disorders: No 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 Physical Exam Vital Signs Vital Signs - First Documented 03/04/22 17:16 Temp 36.7 Pulse 90 Resp 18 B/P (MAP) 118/70 (86) Pulse Ox 100 O2 Delivery Room Air (ROSE LOPEZ MD) Vital Signs Capillary Refill : (KEIKO MCGHEE) Height/Weight/BMI Height: 5'9.00" Weight: 150lbs. oz. 68.106530fg; BMI Method:Stated General Appearance: WD/WN, no apparent distress HEENT: PERRL/EOMI, normal ENT inspection, TMs normal, pharynx normal Neck: non-tender, full range of motion, supple Respiratory: chest non-tender, lungs clear, normal breath sounds, no respiratory distress, no accessory muscle use Cardiovascular: regular rate, rhythm, no edema, no gallop, no JVD Gastrointestinal: normal bowel sounds, soft, no organomegaly, tenderness (rlq abd tenderness on palpation. 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, no motor/sensory deficits, alert, normal mood/affect, oriented x 3 Skin: normal color, warm/dry (KEIKO MCGHEE) Progress/Results/Core Measures Results/Orders Lab Results Laboratory Tests Test 03/04/22 17:19 03/04/22 17:24 Range/Units Urine Color YELLOW Urine Clarity CLEAR Urine pH 6.0 5-9 Urine Specific [place] 1.015 L 1.016-1.022 Urine Protein NEGATIVE NEGATIVE Urine Glucose (UA) NEGATIVE NEGATIVE Urine Ketones NEGATIVE NEGATIVE Urine Nitrite NEGATIVE NEGATIVE Urine Bilirubin NEGATIVE NEGATIVE Urine Urobilinogen 0.2 < = 1.0 MG/DL Urine Leukocyte Esterase NEGATIVE NEGATIVE Urine RBC (Auto) NEGATIVE NEGATIVE Urine RBC NONE /HPF Urine WBC NONE /HPF Urine Squamous Epithelial Cells 25-50 H /HPF Urine Crystals NONE /LPF Urine Bacteria TRACE /HPF Urine Casts NONE /LPF Urine Mucus NEGATIVE /LPF Urine Culture Indicated NO Urine Test NEGATIVE NEGATIVE White Blood Count 9.4 4.3-11.0 10^3/uL Red Blood Count 4.93 3.80-5.11 10^6/uL Hemoglobin 9.7 L 11.5-16.0 g/dL Hematocrit 34 L 35-52 % Mean Corpuscular Volume 68 L 80-99 fL Mean Corpuscular Hemoglobin 20 L 25-34 pg Mean Corpuscular Hemoglobin Concent 29 L 32-36 g/dL Red Cell Distribution Width 20.4 H 10.0-14.5 % Platelet Count 211 130-400 10^3/uL Mean Platelet Volume 11.0 9.0-12.2 fL Immature Granulocyte % (Auto) 0 % Neutrophils (%) (Auto) 70 42-75 % Lymphocytes (%) (Auto) 22 12-44 % Monocytes (%) (Auto) 6 0-12 % Eosinophils (%) (Auto) 2 0-10 % Basophils (%) (Auto) 0 0-10 % Neutrophils # (Auto) 6.5 1.8-7.8 10^3/uL Lymphocytes # (Auto) 2.0 1.0-4.0 10^3/uL Monocytes # (Auto) 0.6 0.0-1.0 10^3/uL Eosinophils # (Auto) 0.1 0.0-0.3 10^3/uL Basophils # (Auto) 0.0 0.0-0.1 10^3/uL Immature Granulocyte # (Auto) 0.0 0.0-0.1 10^3/uL Percent Immature Platelet Fraction 8.3 H 0.0-7.6 % Sodium Level 138 135-145 MMOL/L Potassium Level 4.0 3.6-5.0 MMOL/L Chloride Level 106 98-107 MMOL/L Carbon Dioxide Level 22 21-32 MMOL/L Anion Gap 10 5-14 MMOL/L Blood Urea Nitrogen 9 7-18 MG/DL Creatinine 0.75 0.60-1.30 MG/DL Estimat Glomerular Filtration Rate 110 BUN/Creatinine Ratio 12 Glucose Level 79 70-105 MG/DL Calcium Level 9.3 8.5-10.1 MG/DL Corrected Calcium 9.0 8.5-10.1 MG/DL Total Bilirubin 0.2 0.1-1.0 MG/DL Aspartate Amino Transf (AST/SGOT) 18 5-34 U/L Alanine Aminotransferase (ALT/SGPT) 20 0-55 U/L Alkaline Phosphatase 61 40-136 U/L Total Protein 7.5 6.4-8.2 GM/DL Albumin 4.4 3.2-4.5 GM/DL Lipase 28 8-78 U/L Smear Scan YES (ROSE LOPEZ MD) Vital Signs/I&O 03/04/22 03/04/22 03/04/22 17:16 18:15 20:30 Temp 36.7 Pulse 90 77 70 Resp 18 16 B/P (MAP) 118/70 (86) 149/64 149/87 Pulse Ox 100 100 100 O2 Delivery Room Air Room Air Room Air (ROSE LOPEZ MD) Departure Communication (Admissions) Time/Spoke to Admitting Phy: 20:34 Patient with a right ovarian torsion. Patient was discussed with Dr. PITT who will take the patient to the OR and admit for observation. (KEIKO MCGHEE) Communication (PCP) Patient with a right ovarian torsion. Patient Was given IV fentanyl with some improvement of pain. Normal white blood count. Urinalysis was negative for infection or . Patient was discussed with Dr. PITT who recommends patient to go to the OR and admit for observation. Patient with anemia 9.7 likely chronic (KEIKO MCGHEE) Impression Primary Impression: Ovarian torsion Disposition: ADMITTED INPATIENT Condition: Stable Admissions Decision to Admit Reason: Admit from ER (General) Decision to Admit/Date: Mar 04, 2022 Time/Decision to Admit Time: 20:34 (KEIKO MCGHEE) Departure-Patient Inst. Referrals: NO,LOCAL PHYSICIAN (PCP/Family) Primary Care Physician Scripts Ibuprofen (Ibuprofen) 800 Mg Tablet 800 MG PO Q4H PRN for PAIN, #60 TAB Prov: INGA PITT MD 03/04/22 Docusate Sodium (Colace) 100 Mg Capsule 100 MG PO BID, #60 CAP Prov: INGA PITT MD 03/04/22 ATTENDING PHYSICIAN NOTE: I was physically present as attending physician in the emergency department during the care of this patient, but I was not directly involved in the decision making or delivery of care for this patient. (ROSE LOPEZ MD) KEIKO MCGHEE Mar 04, 2022 17:33 ROSE LOPEZ MD Mar 07, 2022 00:03
[2022-03-04 17:37] LABS: BASOPHILS % (AUTO) 0 % (0-10); EOSINOPHILS # (AUTO) 0.1 10^3/uL (0.0-0.3); EOSINOPHILS % (AUTO) 2 % (0-10); HEMATOCRIT 34 % (35-52); HEMOGLOBIN 9.7 g/dL (11.5-16.0); LYMPHOCYTES % (AUTO) 22 % (12-44); MEAN CORPUSCULAR HEMOGLOBIN 20 pg (25-34); MEAN CORPUSCULAR HGB CONC 29 g/dL (32-36); MEAN CORPUSCULAR VOLUME 68 fL (80-99); MONOCYTES # (AUTO) 0.6 10^3/uL (0.0-1.0); MONOCYTES % (AUTO) 6 % (0-12); NEUTROPHILS # (AUTO) 6.5 10^3/uL (1.8-7.8); NEUTROPHILS % (AUTO) 70 % (42-75); PLATELET COUNT 211 10^3/uL (130-400); WHITE BLOOD COUNT 9.4 10^3/uL (4.3-11.0)
[2022-03-04 17:38] LABS: BACTERIA,URINE TRACE /HPF; SQUAMOUS EPITHELIAL CELL,UR 25-50 /HPF
[2022-03-04 17:56] LABS: ALBUMIN 4.4 GM/DL (3.2-4.5); BILIRUBIN,TOTAL 0.2 MG/DL (0.1-1.0); CALCIUM 9.3 MG/DL (8.5-10.1); CREATININE SERUM 0.75 MG/DL (0.60-1.30); TOTAL PROTEIN 7.5 GM/DL (6.4-8.2)
[2022-03-04 18:11] LABS: SMEAR SCAN COMMENT YES
--- NOTE | 2022-03-04 18:21 | Diagnostic Imaging Report ---
PROCEDURE: CT abdomen and pelvis with contrast, rule out appendicitis. TECHNIQUE: Multiple contiguous axial images were obtained through the abdomen and pelvis after the administration of intravenous contrast. All CT scans use one or more of the following dose optimizing techniques: Automated exposure control, MA and/or KvP adjustment based on patient size and exam type or iterative reconstruction. INDICATION: Right lower quadrant abdominal pain. COMPARISON: None. FINDINGS: Calcified granuloma in the right lung base. Cholecystectomy. The liver, pancreas, spleen, adrenals, kidneys, collecting systems, and bladder are negative. Nonspecific cyst in the right ovary measuring up to 2.4 cm. No free fluid in the pelvis. The appendix is surgically absent. No suspicious inflammatory findings in the region of the cecum. No free intraperitoneal air. No evidence of bowel obstruction. No lymphadenopathy. No acute osseous findings. IMPRESSION: 1. No acute CT findings in the abdomen or pelvis. 2. Nonspecific cyst in the right ovary measuring up to 2.4 cm. No free fluid in the pelvis. This could be further investigated with pelvic ultrasound if clinically warranted. 3. Cholecystectomy. Appendectomy. Dictated by: Dictated on workstation # [id number]
--- NOTE | 2022-03-04 20:03 | Diagnostic Imaging Report ---
PROCEDURE: US non-OB pelvis comp/trans. TECHNIQUE: Multiple realtime grayscale images were obtained of the pelvis in various projections, endovaginally. Transabdominal imaging was also performed. INDICATION: Abdominal pain. FINDINGS: The retroverted uterus measures 7.9 x 4.7 x 5.3 cm with normal endometrial thickness of 1 cm. Ovaries are within normal limits for size. Normal blood flow is seen within the left ovary. Only minimal internal flow is seen within the right ovary. There is no significant right adnexal region fluid. Small amount of fluid is noted within the endometrial canal. IMPRESSION: Asymmetric ovarian blood flow with normal appearance on the left and decreased blood flow to the right. In proper clinical setting, this is concerning for restricted perfusion related to ovarian torsion. Consideration could be given to short-term ultrasound follow-up or laparoscopic visualization. Dictated by: Dictated on workstation # [id number]
[2022-03-04] MEDS ORDERED: SEVOFLURANE (ULTANE) 15 ML INHAL SOLN ONE ×2 (21:07→22:28)
[2022-03-04] MEDS ORDERED: ONDANSETRON 4 MG/2 ML (SDV) Z0FRAN ONE (21:07)
[2022-03-04] MEDS ORDERED: LIDOCAINE PF 2% 5 ML (XYLOCAINE) VIAL ONE (21:07)
[2022-03-04] MEDS ORDERED: fentaNYL INJ 100 MCG/2 ML AMP ONE (21:07)
[2022-03-04] MEDS ORDERED: MIDAZOLAM 2 MG/2 ML (VERSED) VIAL ONE (21:07)
[2022-03-04] MEDS ORDERED: proPOfol 200 MG/20 ML (DIPRIVAN) VIAL IV ONE (21:07)
[2022-03-04] MEDS ORDERED: SUCCINYLCHOLINE INJ 100 MG/5 ML SYR/VIAL ONE (21:10)
[2022-03-04] MEDS ORDERED: ROCURONIUM 50 MG/5 ML (ZEMURON) VIAL IV ONE (21:10)
[2022-03-04] MEDS ORDERED: BUP/EPI 0.5% 1:200,000 (MARCAINE) 10ML VIAL IJ ONE (21:12)
--- NOTE | 2022-03-04 21:13 | History & Physical ---
History and Physical Date Seen by Provider: Mar 04, 2022 Time Seen by Provider: 21:08 This patient is a 31-year-old 3 para 3 3 female who also has had a tubal sterilization who presented to the emergency department this evening with complaint of 3 days history of severe left lower quadrant pain that got exceedingly worse this evening. She sought attention in the ED evaluation ED was 6 consistent with a torsed ovary on the left to the ED physician and cardiology. Patient denies discharge or bleeding she has no bowel or bladder complaints. She is on no medications Allergies are to penicillin which causes hives Medications None Social history patient is she has 3 children she smokes 1/2 pack cigarettes a day she drinks alcohol socially she denies drug use Family historyNoncontributory Surgical history patient has had cholecystectomy and appendectomy and tubal sterilization as well as 3 Laboratory Tests Test 03/04/22 17:19 03/04/22 17:24 Range/Units Urine Color YELLOW Urine Clarity CLEAR Urine pH 6.0 5-9 Urine Specific [employer] 1.015 L 1.016-1.022 Urine Protein NEGATIVE NEGATIVE Urine Glucose (UA) NEGATIVE NEGATIVE Urine Ketones NEGATIVE NEGATIVE Urine Nitrite NEGATIVE NEGATIVE Urine Bilirubin NEGATIVE NEGATIVE Urine Urobilinogen 0.2 < = 1.0 MG/DL Urine Leukocyte Esterase NEGATIVE NEGATIVE Urine RBC (Auto) NEGATIVE NEGATIVE Urine RBC NONE /HPF Urine WBC NONE /HPF Urine Squamous Epithelial Cells 25-50 H /HPF Urine Crystals NONE /LPF Urine Bacteria TRACE /HPF Urine Casts NONE /LPF Urine Mucus NEGATIVE /LPF Urine Culture Indicated NO Urine Test NEGATIVE NEGATIVE White Blood Count 9.4 4.3-11.0 10^3/uL Red Blood Count 4.93 3.80-5.11 10^6/uL Hemoglobin 9.7 L 11.5-16.0 g/dL Hematocrit 34 L 35-52 % Mean Corpuscular Volume 68 L 80-99 fL Mean Corpuscular Hemoglobin 20 L 25-34 pg Mean Corpuscular Hemoglobin Concent 29 L 32-36 g/dL Red Cell Distribution Width 20.4 H 10.0-14.5 % Platelet Count 211 130-400 10^3/uL Mean Platelet Volume 11.0 9.0-12.2 fL Immature Granulocyte % (Auto) 0 % Neutrophils (%) (Auto) 70 42-75 % Lymphocytes (%) (Auto) 22 12-44 % Monocytes (%) (Auto) 6 0-12 % Eosinophils (%) (Auto) 2 0-10 % Basophils (%) (Auto) 0 0-10 % Neutrophils # (Auto) 6.5 1.8-7.8 10^3/uL Lymphocytes # (Auto) 2.0 1.0-4.0 10^3/uL Monocytes # (Auto) 0.6 0.0-1.0 10^3/uL Eosinophils # (Auto) 0.1 0.0-0.3 10^3/uL Basophils # (Auto) 0.0 0.0-0.1 10^3/uL Immature Granulocyte # (Auto) 0.0 0.0-0.1 10^3/uL Percent Immature Platelet Fraction 8.3 H 0.0-7.6 % Sodium Level 138 135-145 MMOL/L Potassium Level 4.0 3.6-5.0 MMOL/L Chloride Level 106 98-107 MMOL/L Carbon Dioxide Level 22 21-32 MMOL/L Anion Gap 10 5-14 MMOL/L Blood Urea Nitrogen 9 7-18 MG/DL Creatinine 0.75 0.60-1.30 MG/DL Estimat Glomerular Filtration Rate 110 BUN/Creatinine Ratio 12 Glucose Level 79 70-105 MG/DL Calcium Level 9.3 8.5-10.1 MG/DL Corrected Calcium 9.0 8.5-10.1 MG/DL Total Bilirubin 0.2 0.1-1.0 MG/DL Aspartate Amino Transf (AST/SGOT) 18 5-34 U/L Alanine Aminotransferase (ALT/SGPT) 20 0-55 U/L Alkaline Phosphatase 61 40-136 U/L Total Protein 7.5 6.4-8.2 GM/DL Albumin 4.4 3.2-4.5 GM/DL Lipase 28 8-78 U/L Smear Scan YES CT and ultrasound were consistent with Right adnexal torsion HEENT exam is normal Neck is supple no lymphadenopathy no thyromegaly soft diffusely tender more so in the left lower quadrant There is minimal guarding with some rebound and on palpation left lower quadrant Extremities show no clubbing cyanosis. There is no Homans' sign. Pelvic exam is deferred Assessment and plan Acute abdomen due to likely torsed Right adnexa.We had a lengthy discussion regarding her history her presentation her CT and ultrasound findings. Patient understands the need for urgent evaluation due to likely torsed ovary. She understands that the ovary may not be salvageableAnd that she could undergo right salpingectomy and salpingo-oophorectomyAs well as other indicated procedures. Surgical risk complications recovery and follow-up were fully discussed. Patient is ready to go to the operating Acute abdomen due to Likely right ovarian torsion Allergies and Home Medications Allergies Coded Allergies: Penicillins (Verified Allergy, Intermediate, hives, 04/21/15) Cephalosporins PER FERNANDO PATIENT HAS RECEIVED ANCEF WITHOUT ISSUE Patient Home Medication List Home Medication List Reviewed: Yes Mag Hydrox/Al Hydrox/Simeth (Mylanta Suspension) 30 Ml Oral.susp, 30 ML PO QID PRN for INDIGESTION, (Reported) Entered as Reported by: JOANNE TAMAYO on 02/25/18 0228 INGA PITT MD Mar 04, 2022 21:13
[2022-03-04] MEDS ORDERED: D5 LR IV SOLUTION 1,000 ML IV SCH (21:15)
[2022-03-04] MEDS ORDERED: ONDANSETRON 4 MG/2 ML (SDV) Z0FRAN IVP PRN ×2 (21:15→22:45)
[2022-03-04] MEDS ORDERED: fentaNYL INJ 100 MCG/2 ML AMP IVP PRN (21:15)
[2022-03-04] MEDS: LACTATED RINGERS 1,000 ML IV PRN ×2 (21:18→23:06)
[2022-03-04] MEDS ORDERED: DOCU-143 PO (21:18)
[2022-03-04] MEDS ORDERED: IBUP-1780 PO (21:18)
--- NOTE | 2022-03-04 21:19 | Discharge Inst-Surgical ---
Discharge Inst-Surgical Depart Medication/Instructions New, Converted or Re-Newed RX: Other Consults/Follow Up Patient Instructions: As directed Orders & Referrals Follow Up Appt: Call to make follow up appt. for patient in 1 week For suture removal. Activity: Rest for 24 hours, than as tolerated. Wound Care: May remove Band-Aid tomorrow. Replace as desired. Keep incisions clean and dry. Wash daily with soap and water. Please call in RX to patient pharmacy. Diet: As tolerated shower or tub bathe as desired. No driving for 24 hours, no alcoholic beverages for 24 hours, and nothing per vagina (no tampons, douching, or intercourse) for 2 weeks. Patient to return to the clinic as soon as possible for: Temperature greater than 101F, Severe Pain, Foul discharge from incision or vagina, Excessive Bleeding (more than a period). Activity Activity as Tolerated: No Diet Discharge Diet: No Restrictions INGA PITT MD Mar 04, 2022 21:19
[2022-03-04] MEDS ORDERED: ceFAZolin INJECTION 1,000 MG ONE (21:32)
[2022-03-04] MEDS ORDERED: HYDROmorphone 2 MG/ML VIAL (DILAUDID) ONE ×2 (21:52→22:58)
[2022-03-04] MEDS ORDERED: GLYCOPYRROLATE 0.2 MG/ML (ROBINUL) 2 ML VIAL ONE (22:14)
[2022-03-04] MEDS ORDERED: NEOSTIGMINE (BLOXIVERZ ) 1 MG/1ML 10 ML VIAL ONE (22:15)
[2022-03-04] MEDS ORDERED: KETOROLAC 30 MG/ML VIAL ONE (22:16)
[2022-03-04] MEDS: KETOROLAC 30 MG/ML VIAL IV SCH (22:30)
--- NOTE | 2022-03-04 22:40 | Anesthesia-General Post-Op ---
General Patient Condition Mental Status/LOC: Same as Preop Cardiovascular: Satisfactory Nausea/Vomiting: Absent Respiratory: Satisfactory Pain: Controlled Complications: Absent Post Op Complications Complications None Follow Up Care/Instructions Patient Instructions None needed. Anesthesia/Patient Condition Patient Condition Patient is doing well, no complaints, stable vital signs, no apparent adverse anesthesia problems. No complications reported per nursing. D/C home per [facility] [place] Criteria: Yes GRAHAM ALCAZAR CRNA Mar 04, 2022 22:40
[2022-03-04] MEDS ORDERED: HYDROmorphone 2 MG/ML VIAL (DILAUDID) IV ONE (22:45)
[2022-03-04] MEDS ORDERED: MEPERIDINE (DEMEROL) INJ 50 MG/ML IVP ONE (22:45)
[2022-03-04] MEDS ORDERED: LACTATED RINGERS 1,000 ML IV ONE (22:59)
[2022-03-05 04:09] VITALS: BP 116/56
[2022-03-05] MEDS: KETOROLAC 30 MG/ML VIAL IV SCH (04:09)
--- NOTE | 2022-03-05 04:39 | OPERATIVE REPORT ---
DATE OF SERVICE: 03/04/2022 PREOPERATIVE DIAGNOSES: Acute abdomen, suspected torsed right ovary. POSTOPERATIVE DIAGNOSES: Acute abdomen, suspected torsed right ovary with right ovarian torsion as well as extensive abdominal, pelvic and uterine adhesions. OPERATIVE PROCEDURE: Laparoscopic adhesiolysis extensively and then right salpingo-oophorectomy. OPERATIVE DESCRIPTION: With the patient in supine position under satisfactory general anesthesia, she was repositioned in dorsal lithotomy position in the [facility] and prepped and draped in the usual fashion for abdominal and vaginal surgery. Urinary bladder was drained with straight catheter. A weighted speculum placed in the posterior fornix of vagina, cervix exposed and grasped anteriorly with single tooth tenaculum. Uterus was sounded to 12 cm with uterine sound. The cervix was then serially dilated with Eliseo dilators to accommodate a HUMI uterine manipulator, which was placed and the bulb filled with 4 mL of air. The tenaculum and speculum were removed. The patient was brought in low dorsal lithotomy position. A 5 mm incision was made in the patient's left upper quadrant. Veress needle was placed through that incision into the abdominal cavity. Correct placement confirmed with water drop test and the abdomen was insufflated with 2.4 liters of carbon dioxide. The Veress needle was removed and a 5 mm Optiview laparoscopic port was placed under direct vision. It was immediately apparent that the pelvis was extensively obscured by adhesions of the omentum to the anterior abdominal wall. A second port was placed in the patient's right upper quadrant to facilitate adhesiolysis with the scope in the right upper quadrant and monopolar becca with hook cautery in the left upper quadrant. The adhesions to the anterior abdominal wall were gradually and meticulously lysed until the omentum was completely freed exposing the pelvis. The uterus was densely adherent to the anterior abdominal wall and to the bladder dome and to the right tube and ovary. The left ovary was bounded and placed by adhesions over the left pelvic brim. That was left in situ as the patient's pain and problems had been on the right. The right ovary was torsed and fixed anterior to the mesovarium. The adhesions were freed and then an Endo-KELI was placed across the IP ligament and mesovarium and fired, a second firing of the same instrument severed the ovary from its attachments, the ovary placed in an Endobag and brought out through the umbilical port. The pelvis was examined for hemostasis that was complete, adequate adhesiolysis had been done to accomplish the surgery and debris the uterus to some extent. The balance of the adhesions were left in place and photodocumentation obtained. The appendix was seemed to be surgically absent. With sponge and needle counts correct, hemostasis assured, no remaining pathology of concern. The procedure was terminated. The operative instruments were removed under direct vision as were the ports. The abdomen was evacuated of insufflating gas in the process of removing the ports. The fascia at the umbilical incision where a 12 mm port had been placed was closed with [id number] suture of 2-0 Vicryl. All 4 skin incisions, which were right upper quadrant, left upper quadrant, umbilical and suprapubic were closed with interrupted nylon sutures. Sponge and needle counts were correct at this point, blood loss was minimal. The uterine manipulator bulb was drained. The instruments were removed from the uterus and from the vagina. Speculum was placed in the vagina and the cervix exposed examined for hemostasis that was complete. The patient was now uneventfully awakened from her general anesthesia and transferred to the recovery room in stable condition. Job ID: [id number] DocumentID: [id number] Dictated Date: 03/04/2022 22:55:56 Office Services Assistant Date: 03/05/2022 04:38:45 Dictated By: INGA PITT MD
--- NOTE | 2022-03-05 07:15 | Progress Note ---
Standard Progress Note Progress Notes/Assess & Plan Date Seen by a Provider: Mar 05, 2022 Time Seen by a Provider: 07:14 Progress/Assessment & Plan This patient is without complaint. She is ambulating, voiding, tolerating oral intake and has good pain control. She reports that her Pain is resolved. She has no nausea or vomiting she has no headache she has no chest pain Vital Signs Date Time Temp Pulse Resp B/P (MAP) Pulse Ox O2 Delivery O2 Flow Rate FiO2 03/05/22 04:09 36.4 63 18 116/56 (76) 98 Room Air 03/05/22 00:10 97 Room Air 03/04/22 23:30 36.0 62 18 133/64 (87) 98 Room Air 03/04/22 23:30 98 Room Air 03/04/22 23:25 Room Air 03/04/22 23:20 36.1 14 137/71 (93) 100 Room Air 03/04/22 23:10 15 138/69 (92) 100 Room Air 03/04/22 23:10 Room Air 03/04/22 23:00 14 146/76 (99) 100 OxyMask 2.00 03/04/22 22:50 15 143/81 (101) 100 OxyMask 4.00 03/04/22 22:50 OxyMask 4.00 03/04/22 22:40 15 141/77 (98) 100 OxyMask 6.00 03/04/22 22:36 36.2 16 136/74 (94) 100 OxyMask 6.00 03/04/22 22:36 OxyMask 6.00 03/04/22 21:23 37.0 79 18 138/78 99 Room Air 03/04/22 20:30 70 149/87 100 Room Air 03/04/22 18:15 77 16 149/64 100 Room Air 03/04/22 17:16 36.7 90 18 118/70 (86) 100 Room Air I & O 03/05/22 07:00 Intake Total 1940 ml Output Total 700 ml Balance 1240 ml Vital signs are stable. Patient is afebrile. The abdomen is benign. The surgical incisions are clean and dry. Extremities show no clubbing or cyanosis. There is no Homans' sign. Assessment and plan Postoperative day #1 status post extensive adhesiolysis and right salpingo-oophorectomy for a right torsed ovary. Patient is doing well will be discharged home with follow-up in clinic Final Diagnosis Right ovarian torsion INGA PITT MD Mar 05, 2022 07:15
[2022-03-05 08:00] VITALS: BP 115/57
[2022-03-05 08:35] VITALS: BP 115/57
[2022-03-05] MEDS ORDERED: DOCUSATE SODIUM 100 MG (COLACE) CAP PO SCH (09:00)
[2022-03-05] MEDS ORDERED: IBUPROFEN 800 MG (MOTRIN) TAB PO SCH (21:15)
== END 2022-03-05 08:35 ==
LOC: EDUNIT# 17:10 → ER 17:12 → SDC 21:03 → WS 23:50 → SDC 03-05 08:35
PROVIDERS: ATTEND Obstetrics & Gynecology
DX: N83.11 Corpus luteum cyst of right ovary (principal); N73.6 Female pelvic peritoneal adhesions (postinfective); N83.291 Other ovarian cyst, right side; F17.210 Nicotine dependence, cigarettes, uncomplicated
CPT/HCPCS: 36415; 74177; 76830; 76856; 80053; 81000; 83690; 84703; 85025; 88305; 94664; 96374